=== PATIENT | female | born 1990 | race Caucasian/White ===

== ENCOUNTER 2020-02-08 19:27 | Observation (INO) | payer OTHER, SELFPAY ==
[2020-02-08 19:29] VITALS: BP 142/100; PULSE 100; RESP 16; TEMP 37.2; O2SAT 100; BMI 20.8
--- NOTE | 2020-02-08 19:36 | ED.RN ---
PT REPORTS N/T ON LEFT ARM, NECK, FACE AND SOMETIMES RT HAND. RECENTLY STARTED ON TMJ MOUTHPIECE. HX SPONT PNEUMOTHORAX IN 05/08.
--- NOTE | 2020-02-08 19:50 | EKG12_ITS ---
Test Reason : NUMBNESS Blood Pressure : / mmHG Vent. Rate : 104 BPM Atrial Rate : 104 BPM P-R Int : 156 ms QRS Dur : 088 ms QT Int : 338 ms P-R-T Axes : 065 072 005 degrees QTc Int : 444 ms Sinus tachycardia T wave abnormality, consider inferior ischemia Abnormal ECG Confirmed by KELVIN ESCOBAR, OMAR ([id number]), map editor TIA DEMARCO ([id number]) on 02/12/2020 9:00:32 AM Referred By: Confirmed By:DIMITRIOS WARREN MD
--- NOTE | 2020-02-08 19:51 | CT_ITS ---
STUDY: CTA HEAD AND NECK WITH CONTRAST REASON FOR EXAM: Female, 29 years old. TINGLING IN THE FACE, NECK, DOWN INTO LEFT PINKY. RADIATION DOSAGE (If Supplied By Facility): CTDIvol = ( 23.28 ) mGy, DLP = ( 1326.83 ) mGycm TECHNIQUE: CT angiography was performed with a multi-detector CT scanner. Data acquisition was obtained from the skull base through the vertex following intravenous administration of IV 100 ML ISOVUE 370. MIP images were reconstructed from the axial data set. Post-processing of the angiographic images was performed, with multiplanar reformation and 3D reconstruction. Individualized dose optimization techniques were used for this CT. COMPARISON: No relevant priors. FINDINGS: Normal bilateral petrous carotid arteries. Normal right cavernous carotid artery with a normal supraclinoid bifurcation. Normal left cavernous carotid artery with a normal supraclinoid bifurcation. Normal right A1 segments of the anterior cerebral artery. Normal left A1 segments of the anterior cerebral artery. Normal intact anterior communicating artery (ACOM). Normal bilateral A2 segments of the anterior cerebral arteries. Normal right M1 and M2 segments of the middle cerebral arteries, with a normal M1 bifurcation. Normal left M1 and M2 segments of the middle cerebral arteries, with a normal M1 bifurcation. Normal right posterior communicating artery (PCOM). There is a persistent origin of the left posterior cerebral artery with absence of the posterior communicating artery (PCOM). Normal bilateral vertebral arteries. Normal basilar artery with a normal basilar bifurcation. The visualized bilateral superior cerebellar (SCA) arteries are normal. Normal bilateral P1, P2 and visualized P3 segments of the posterior cerebral arteries. There is no demonstrated aneurysm of the [place]. There is no demonstrated abnormality of the visualized brain. AORTIC ARCH: Normal visualized aortic arch. Normal origins of the brachiocephalic, left common carotid, and left subclavian arteries. RIGHT CAROTID ARTERIES: Normal right common carotid artery (CCA). Normal right common carotid bulb. Normal origin of the right internal carotid (ICA) artery without a hemodynamically significant stenosis. Normal visualized cervical portion of the right internal carotid artery. Normal origin of the right external carotid artery (ECA). LEFT CAROTID ARTERIES: Normal left common carotid artery (CCA). Normal left common carotid bulb. Normal origin of the left internal carotid (ICA) artery without a hemodynamically significant stenosis. Normal visualized cervical portion of the left internal carotid artery. Normal origin of the left external carotid artery (ECA). VERTEBRAL ARTERIES: Normal bilateral vertebral arteries. CT/CTA Head AND Neck W/ Contrast IMPRESSION: Normal CTA Head and neck with contrast. Electronically Signed: Romeo Bah MD at 20:46 EDT Tel , Service support ,
--- NOTE | 2020-02-08 19:59 | ED.RN ---
NO OLD EKGS IN MUSE
--- NOTE | 2020-02-08 19:59 | ED.VISSUMM ---
- ER Visit Summary Date of Service: 02/08/20 Chief Complaint: Facial tingling History of Present Illness: The patient is a 29 F with facial tingling. Patient states this started today and has been intermittent throughout the day. She states that she was recently given a mouthguard by her dentist for TMJ. She is unsure if this is related. She started having bilateral facial tingling and tingling below her jaw today. She denies any difficulty breathing or swallowing. No tongue swelling. No itching. She called her dentist and was advised to discontinue use of the mouthguard while the symptoms are ongoing. She then noticed tingling in her left small finger. She denies weakness. Denies vision or speech changes. Denies headache. Denies fever. She states she feels anxious but the symptoms started before her anxiety. Denies other complaints. Physical Examination: Vitals are stable. Patient is afebrile. Alert no acute distress. HEENT exam is unremarkable. Neck is supple. Lungs are clear and equal bilaterally. Heart is regular rate and rhythm. Abdomen is soft nontender nondistended. Extremities are unremarkable. Skin is warm and dry. Facial and left hand paresthesia. Normal strength Remainder of exam is unremarkable. Emergency Department Course and Treatment: Patient was given Ativan. EKG is sinus tachycardia rate of 104 with T wave flattening laterally. CBC, chemistry unremarkable other than potassium 3.4. Troponin is negative. HCG negative. TSH is normal. Chest x-ray shows no acute process. CTA head and neck show normal CTA Head and neck with contrast. She continues to have facial paresthesias as well as left hand paresthesias. Will discuss with hospitalist for observation for MRI. Disposition: Observation Impression: Facial and left hand paresthesias This note was generated with Graph[employer] dictation software. It may contain incorrect words, spelling, and punctuation that were not noted in review of the chart prior to signing ED Disposition - Plan for ED Patient: Referrals: Hannah Chinchilla NP-C [Primary Care Provider] -
[2020-02-08] MEDS: LORazepam 0.5 MG Tablet PO (20:04)
[2020-02-08] MEDS: 0.9% Normal Saline 1,000 ML 1000 ML IV (20:04)
[2020-02-08 20:24] LABS: Absolute Lymphocyte Count 2.26 X10^3/uL (0.83-4.51); Absolute Neutrophil Count 4.3 X10^3/uL (2.0-7.7); Basophil# 0.06 X10^3/uL; Basophil% 0.8 % (0-1); Eosinophil# 0.35 X10^3/uL; Eosinophils% 4.8 % (0-5); Hematocrit 41.1 % (37-47); Hemoglobin 13.6 g/dL (12.0-15.0); Lymphocyte # 2.26 X10^3/ul (4.0); Lymphocyte % 30.7 % (19-41); Mean Corp Hgb Conc 33.1 g/dL (32-36); Mean Corpuscular Hgb 29.6 pg (27.0-32.0); Mean Corpuscular Volume 89.3 fL (81-99); Mean Platelet Vol. 9.1 fl (6.2-12.0); Monocyte# 0.41 X10^3/uL; Monocyte% 5.6 % (0-10); NRBC Flagged by Analyzer 0 % (0-5); Neutrophil # 4.25 X10^3/uL (2.7-7.7); Neutrophil % 57.7 % (47-70); Platelet Count 242 K/mm3 (150-450); RBC Distribution Width CV 12.1 % (11.6-14.6); RBC Distribution Width SD 39.1 fl (35.1-43.9); White Blood Count 7.4 K/mm3 (4.4-11.0)
--- NOTE | 2020-02-08 20:25 | RAD_ITS ---
STUDY: X-RAY CHEST REASON FOR EXAM: Female, 29 years old. NUMBNESS AND TINGLING IN ARM AND FACE TECHNIQUE: Single frontal view of the chest. COMPARISON: None. FINDINGS: The lungs are clear and expanded. There is no demonstrated pleural abnormality. Normal size heart. Normal mediastinum and cami. Normal visualized pulmonary arteries. Normal visualized aortic arch and descending thoracic aorta. Normal visualized thoracic spine. Normal visualized ribs, clavicles, and shoulders. There is no demonstrated abnormality of the visualized soft tissue structures of the upper abdomen. RAD/Chest 1 View (Portable) IMPRESSION: Normal x-ray examination of the chest. Electronically Signed: Romeo Bah MD at 20:56 EDT Tel , Service support ,
[2020-02-08 20:30] LABS: Internal QC Validated? YES +Cl - CLEAR BKGD; Pregnancy, Serum, hCG Quali. NEGATIVE Negative
[2020-02-08 20:49] LABS: Anion Gap 5 (5-15); BUN 12 mg/dL (7-18); BUN/Creat Ratio 13.7 RATIO (10-20); Calcium,Total 9.2 mg/dL (8.5-10.1); Chloride 110 mmol/L (98-107); Creatinine, Serum 0.88 mg/dL (0.55-1.02); EST Glomerular Filtration Rate 81 mL/min (>60); Est Glom Filt Rate - Afr Amer 98 mL/min (>60); Estimated Creatinine Clearance 98.13 ml/min; Glucose 111 mg/dL (74-106); Potassium 3.4 mmol/L (3.5-5.1); Sodium Level 142 mmol/L (136-145); Thyroid Stim Hormone (TSH) 2.67 uIU/mL (0.358-3.74)
[2020-02-08 21:14] VITALS: BP 121/8; PULSE 87; RESP 15; O2SAT 98
--- NOTE | 2020-02-08 22:16 | PCM.HP.STD ---
Problem List (1) Paresthesia Status: Acute History of Present Illness Date of Admission: 02/08/20 Chief Complaint: Paresthesia The patient is a 29 year old F with a significant history of spontaneous pneumothorax; and antitrypsin deficiency who presents to the emergency department with paresthesias. She reports numbness and tingling starting from her neck and radiating to her face. Her symptoms started after she tried a mouthpiece for her TMJ. Her symtpoms has been going on for about 7 days. Also she noticed some tingling sensation of the left small finger. She reports anxiety but she feels that her paresthesias started before her anxiety. However she feels that her anxiety has worsened hyperesthesia. The patient is a 29 year old F with a significant history of spontaneous pneumothorax; and antitrypsin deficiency who presents emergency department with paresthesias. Paresthesia Head and neck CT at emergency department was unremarkable We will get brain CT NIH initially started but is unlikely stroke. Discontinue NIHSS. Check hemoglobin A1c DVT prophylaxis: encouraged to ambulate. Past Medical History Medical History: Medical History (Last Updated 02/09/20 @ 02:[address] Adam Mckeon MD) TMJ (temporomandibular joint syndrome) M26.609 Allergies No Known Allergies Allergy (Verified 02/08/20 19:29) Surgical History: no surgical history Smoking Status: Never smoker - *Family History Maternal History Items: Dementia, Hypertension Paternal History Items: Diabetes, Heart Disease Review of Systems Constitutional: Denies: Chills, Fever, Weight Change HEENT: Denies: Head Aches, Sinus Congestion, Sinus Drainage Cardiovascular: Denies: Chest Pain, Palpitations Respiratory: Denies: Cough, Shortness of breath at rest, Sputum production Gastrointestinal: Denies: Abdominal Pain, Nausea, Vomiting Genitourinary: Denies: Dysuria Musculoskeletal: Denies: Joint Pain, Joint Tenderness Skin: Denies: Rash, Wounds Neurological: Reports: Numbness, Tingling. Denies: Focal weakness Psychiatric: Denies: Anxiety, Depression, Homicidal Ideations, Suicidal Ideations Hematologic/ Lymphatic: Denies: Easy Bruising, Easy Bleeding VTE Information - Inpt Only VTE Present on Admission: No VTE Mechan Device Prophylaxis: None VTE Pharm Prophylaxis ordered?: No Patient Problems: Active and Suspected Problems (Last Updated 02/09/20 @ 02:[address] Adam Mckeon MD) Paresthesia (Acute) - Physical Exam Vitals/I&O's: Vital Signs Temp Pulse Resp BP Pulse Ox 98.9 F 87 15 121/8 H 98 02/08/20 19:29 02/08/20 21:14 02/08/20 21:14 02/08/20 21:14 02/08/20 21:14 Oxygen Delivery Method Room Air Weight: 65.9 kg Body Mass Index (BMI) 20.8 General: Alert, Oriented x3, Cooperative HEENT: Atraumatic, PERRLA, EOMI, Normocephalic Neck: Supple, No JVD, Negative Carotid Bruits Lungs: Clear to auscultation, Normal air movement Cardiovascular: Regular rate, No murmurs Abdomen: Bowel Sounds Present, Soft, Non Tender Extremities: No edema, Capillary Refill Less than 3 Seconds Skin: No rashes, No breakdown Musculoskeletal: No Tenderness to Palpation of Joints or Extremities Neurological: Cranial nerves II-XII grossly intact Psych/Mental Status: Normal Affect, Appropriate Laboratory Results 02/08/20 20:15: WBC 7.4, RBC 4.60, Hgb 13.6, Hct 41.1, MCV 89.3, MCH 29.6, MCHC 33.1, RDW Std Deviation 39.1, RDW Coeff of Karen 12.1, Plt Count 242, MPV 9.1, Immature Gran % (Auto) 0.400, Neut % (Auto) 57.7, Lymph % (Auto) 30.7, [place] % (Auto) 5.6, Eos % (Auto) 4.8, Baso % (Auto) 0.8, Absolute Neuts (auto) 4.3, Absolute Lymphs (auto) 2.26, Nucleated RBC % 0 02/08/20 20:15: Sodium 142, Potassium 3.4 L, Chloride 110 H, Carbon Dioxide 27.0, Anion Gap 5, BUN 12, Creatinine 0.88, Estim Creat Clear Calc 98.13, Est GFR (MDRD) Af Amer 98, Est GFR (MDRD) Non-Af 81, BUN/Creatinine Ratio 13.7, Glucose 111 H, Calcium 9.2, Troponin I < 0.015, TSH 2.67 02/08/20 20:15: Serum , Qual NEGATIVE Assessment/Plan All Active Problems (Last Updated 02/09/20 @ 02:[address] Adam Mckeon MD) Paresthesia (Acute) The patient is a 29 year old F with a significant history of spontaneous pneumothorax; and antitrypsin deficiency who presents emergency department with paresthesias. Paresthesia Head and neck CT at emergency department was unremarkable We will get brain CT NIH initially started but is unlikely stroke. Discontinue NIHSS. Check hemoglobin A1c Anxiety disorder Reassured. DVT prophylaxis: encouraged to ambulate. OBSV E&M: 54167 Initial observation care L2
[2020-02-08 22:26] VITALS: BP 114/73; PULSE 86; RESP 17; O2SAT 98
[2020-02-08 23:33] VITALS: BMI 20.8
[2020-02-08 23:38] VITALS: BMI 20.8
[2020-02-08 23:40] VITALS: BP 123/81; PULSE 72; RESP 16; TEMP 36.8; O2SAT 100
[2020-02-08 23:57] VITALS: PULSE 85
[2020-02-09 02:47] VITALS: BP 110/69; PULSE 75; RESP 16; TEMP 36.4; O2SAT 98
[2020-02-09 03:00] VITALS: PULSE 74
[2020-02-09 05:58] VITALS: BP 107/58; PULSE 73; RESP 16; TEMP 36.7; O2SAT 94
[2020-02-09 06:48] VITALS: PULSE 68
[2020-02-09 07:28] LABS: Cholesterol 162 mg/dL (200); High Density Lipoprotein 62 mg/dL; Triglycerides 51 mg/dL; Very Low Density Lipoprotein 10 mg/dL (5-40)
--- NOTE | 2020-02-09 09:00 | MRI_ITS ---
STUDY: MRI BRAIN WITHOUT CONTRAST REASON FOR EXAM: Female, 29 years old. numbness/ tingling facial and left little finger TECHNIQUE: Standardized multiplanar fat and water weighted pulse sequences were obtained. COMPARISON: None. FINDINGS: Normal size of the ventricles and extra-axial spaces for the patient''s age. Normal white matter tracts of the supratentorial brain. There is no evidence for recent intracranial ischemia or other cause of cytotoxic edema on diffusion weighted imaging (DWI). Normal T2* images of the brain without demonstrated susceptibility artifact. There is no demonstrated hemosiderin stain. Normal bilateral basal ganglia. Normal thalami. There is no extra-axial fluid accumulation. Normal flow voids within the major intracranial circulation suggesting patency by spin echo criteria. Normal sella turcica, pituitary gland, infundibular stalk, optic chiasm and hypothalamus. Normal tectal plate and pineal gland. Normal midbrain, bety and medulla. Normal cerebellum. Normal basal cisterns. Normal bilateral temporal bones. Normal bilateral internal auditory canals. No demonstrated orbital abnormality, within the constraints of a routine brain study. Normal visualized paranasal sinuses. Normal calvarium and skull base. Normal visualized soft tissue structures. Normal visualized upper cervical spine. MRI/Brain without Contrast IMPRESSION: Normal unenhanced MRI of the brain. Electronically Signed: Ludwig Latham MD at 12:37 EDT Tel , Service support ,
--- NOTE | 2020-02-09 11:19 | DCINST_ITS ---
- Discharge Diagnoses Current Active Problems: Current Active and Chronic Problems (Last Updated 02/09/20 @ 02:[address] Adam Mckeon MD) Paresthesia (Acute) You will use the following diet at home:: No restrictions Your food should be the consistency of: Regular Your liquids should be the consistency of: Regular/Thin Discharge Activity: Return to Normal Activity Allergies/Adverse Reactions: Allergies No Known Allergies Allergy (Verified 02/08/20 19:29) Primary Care Physician: Hannah Chinchilla NP-C [Primary Care Provider] - Please follow up with your Primary Care Physician in: 1 week Test Results: Test results from this visit will be discussed in further detail at your follow- up appointment, if applicable. Proposed Discharge Date: 02/09/20
[2020-02-09 11:21] VITALS: BP 112/77; PULSE 75; RESP 16; TEMP 37.3; O2SAT 98
--- NOTE | 2020-02-09 13:48 | PCM.DC.SUM ---
<Tyrese Cary - Last Filed: 02/09/20 13:48> Discharge Date and Diagnosis Date of Admission: 02/08/20 Date of Discharge: 02/09/20 - Primary Discharge Diagnosis Acute Problems: Active Problems (Last Updated 02/09/20 @ 02:[address] Adam Mckeon MD) Paresthesia (Acute), ulnar radiculopathy, unclear etiology Hospital Course and Treatment Imaging Results: IMAGIN02/09/20 09:00 Brain without Contrast [MRI] Routine MRI/Brain without Contrast IMPRESSION: Normal unenhanced MRI of the brain. CT/CTA Head AND Neck W/ Contrast IMPRESSION: Normal CTA Head and neck with contrast. Operations: None Procedures: None Summary of Care Provided: Hospital Course: The patient is a 29 year old F with pmhx of antitrypsin disorder and TMJ who presented to the ER with c/o left hand 4th and 5th digit parasthesias, and occasionally parasthesias in her face and neck. This had been occurring off and on for about 7 days. She had recently started using a new mouthpiece for TMJ possibly associated with her face and neck symptoms. In the ER she had negative CTA of the head and neck, normal CBC, BMP with mild hypokalemia, negative troponin. TSH was normal, test negative. She was admitted to the PCU. She had an MRI of the brain that was negative. Her parasthesias were most notable in the left 4th and 5th digits. On physical exam she had normal strength, sensation, and ROM in her digits and hand. Radial/ulnar pulse were normal. She was felt to have an ulnar nerve radiculopathy. She denied recent trauma to the arm. She was discharged home in stable condition and will need further workup per her pcp. She should follow u daveith her pcp in 1 week. This patient was seen by Tyrese Cary PA-C under the supervision of Dr. Marley [] - Physical Exam Vitals/I&O's: Vital Signs Temp Pulse Resp BP Pulse Ox 99.1 F 75 16 112/77 98 02/09/20 11:21 02/09/20 11:21 02/09/20 11:21 02/09/20 11:21 02/09/20 11:21 Oxygen Delivery Method Room Air Weight: 145 lb 3.2 oz Body Mass Index (BMI) 20.8 Intake and Output for Last 24 Hours 02/07/20 02/08/20 02/09/20 23:59 23:59 23:59 Intake Total 1000 / 1000 750 / 750 Output Total 0 / 0 Balance 1000 / 1000 750 / 750 General: Alert, Oriented x3, Cooperative HEENT: Atraumatic, PERRLA, EOMI, Normocephalic Neck: Supple, No JVD, Negative Carotid Bruits Lungs: Clear to auscultation, Normal air movement Cardiovascular: Regular rate, No murmurs Abdomen: Bowel Sounds Present, Soft, Non Tender Extremities: No edema, Capillary Refill Less than 3 Seconds Skin: No rashes, No breakdown Musculoskeletal: No Tenderness to Palpation of Joints or Extremities Neurological: Cranial nerves II-XII grossly intact Psych/Mental Status: Normal Affect, Appropriate, Alert and oriented to time, place, person, mood and affect Laboratory Results 02/08/20 20:15: WBC 7.4, RBC 4.60, Hgb 13.6, Hct 41.1, MCV 89.3, MCH 29.6, MCHC 33.1, RDW Std Deviation 39.1, RDW Coeff of Karen 12.1, Plt Count 242, MPV 9.1, Immature Gran % (Auto) 0.400, Neut % (Auto) 57.7, Lymph % (Auto) 30.7, Esmeralda % (Auto) 5.6, Eos % (Auto) 4.8, Baso % (Auto) 0.8, Absolute Neuts (auto) 4.3, Absolute Lymphs (auto) 2.26, Nucleated RBC % 0 02/08/20 20:15: Sodium 142, Potassium 3.4 L, Chloride 110 H, Carbon Dioxide 27.0, Anion Gap 5, BUN 12, Creatinine 0.88, Estim Creat Clear Calc 98.13, Est GFR (MDRD) Af Amer 98, Est GFR (MDRD) Non-Af 81, BUN/Creatinine Ratio 13.7, Glucose 111 H, Calcium 9.2, Troponin I < 0.015, TSH 2.67 02/08/20 20:15: Serum , Qual NEGATIVE 02/08/20 20:15: Hemoglobin A1c 5.0 02/08/20 20:18: Hemoglobin A1c Pending 02/09/20 00:14: Troponin I < 0.015 02/09/20 05:30: Triglycerides 51, Cholesterol 162, LDL Cholesterol 90, VLDL Cholesterol 10, HDL Cholesterol 62 Current Medications Acetaminophen (Tylenol) 650 mg PO Q6H PRN PRN PRN Reason: Pain Score 1-10/Temp > 100.7 F Hydralazine HCl (Apresoline Iv) 5 mg IV Q30M PRN PRN Reason: to maintain BP goals Sodium Chloride () 250 mls @ 15 mls/hr IV .[id number] PRN PRN Reason: Saline Flush Sodium Chloride () 250 mls @ 15 mls/hr IV .[id number] PRN PRN Reason: Additional IVPB Infusion Labetalol HCl (Trandate) 10 - 20 mg IV Q10M PRN PRN PRN Reason: to Maintain BP Goals Ondansetron HCl (Zofran) 4 mg IV Q8H PRN PRN PRN Reason: NAUSEA/VOMITING Sodium Chloride () 10 - 40 ml IV UD PRN PRN Reason: SALINE FLUSH Discharge Activity: Return to Normal Activity Primary Care Physician: aHnnah Chinchilla NP-C [Primary Care Provider] - Please follow up with your Primary Care Physician in: 1 week Disposition: Home Minutes spent on discharge:: 35 Patient Condition:: Stable Medical Necessity - Tobacco Use Smoking Status: Never smoker Meaningful Use Info Meaningful Use Diagnoses (Choose all that apply): None applicable <Tommy Marley - Last Filed: 02/09/20 14:14> Hospital Course and Treatment Imaging Results: 02/09/20 09:00 Brain without Contrast [MRI] Routine Operations: None Procedures: None Summary of Care Provided: Patient seen and examined independently. Data reviewed. I agree with the above note by the physician engineering assistant. The patient is a 29 year old F presents with facial paresthesias as well as paresthesias in her fourth and fifth left fingers. Patient underwent neurologic work-up including a CT of the head neck and MRI of the brain. All which were negative. In regards to the patient's paresthesias in her fourth and fifth fingers on left hand, I feel that is related with an ulnar neuropathy. I advised the patient about trying to keep her arm straight while she sleeping such as talking in between her legs or possible even wrapping a towel around to help prevent flexion. She states it actually does not bother her at night, however. She does state that she carries her 1-year-old primarily in her left arm which could be a factor. For the patient's facial paresthesias she has recently started using a TMJ orthotic. Is unclear if that is directly correlated or not but her paresthesias are more diffuse and not localized. No concern for stroke but may be just related with some changes that her face is undergoing with the new dental device. Reassurance provided to the patient and patient was discharged home in stable condition. [] - Physical Exam Vitals/I&O's: Vital Signs Temp Pulse Resp BP Pulse Ox 37.3 C 75 16 112/77 98 02/09/20 11:21 02/09/20 11:21 02/09/20 11:21 02/09/20 11:21 02/09/20 11:21 Oxygen Delivery Method Room Air Weight: 65.862 kg Body Mass Index (BMI) 20.8 Intake and Output for Last 24 Hours 02/07/20 02/08/20 02/09/20 23:59 23:59 23:59 Intake Total 1000 / 1000 750 / 750 Output Total 0 / 0 Balance 1000 / 1000 750 / 750 General: Alert, Cooperative HEENT: Atraumatic, Normocephalic Psych/Mental Status: Normal Affect, Appropriate Laboratory Results 02/08/20 20:15: WBC 7.4, RBC 4.60, Hgb 13.6, Hct 41.1, MCV 89.3, MCH 29.6, MCHC 33.1, RDW Std Deviation 39.1, RDW Coeff of Karen 12.1, Plt Count 242, MPV 9.1, Immature Gran % (Auto) 0.400, Neut % (Auto) 57.7, Lymph % (Auto) 30.7, Esmeralda % (Auto) 5.6, Eos % (Auto) 4.8, Baso % (Auto) 0.8, Absolute Neuts (auto) 4.3, Absolute Lymphs (auto) 2.26, Nucleated RBC % 0 02/08/20 20:15: Sodium 142, Potassium 3.4 L, Chloride 110 H, Carbon Dioxide 27.0, Anion Gap 5, BUN 12, Creatinine 0.88, Estim Creat Clear Calc 98.13, Est GFR (MDRD) Af Amer 98, Est GFR (MDRD) Non-Af 81, BUN/Creatinine Ratio 13.7, Glucose 111 H, Calcium 9.2, Troponin I < 0.015, TSH 2.67 02/08/20 20:15: Serum , Qual NEGATIVE 02/08/20 20:15: Hemoglobin A1c 5.0 02/08/20 20:18: Hemoglobin A1c Cancelled 02/09/20 00:14: Troponin I < 0.015 02/09/20 05:30: Triglycerides 51, Cholesterol 162, LDL Cholesterol 90, VLDL Cholesterol 10, HDL Cholesterol 62 Discharge Activity: Return to Normal Activity Disposition: Home Minutes spent on discharge:: 35 Patient Condition:: Stable Medical Necessity - Tobacco Use Smoking Status: Never smoker Meaningful Use Info Meaningful Use Diagnoses (Choose all that apply): None applicable OBSV E&M: 56191 Observation care discharge
== END 2020-02-09 11:19 | disposition home or self-care (01) ==
LOC: ED 20:05 → PCU 02-09 03:51
PROVIDERS: Admitting Provider Hospitalist; Emergency Provider Emergency Medicine; PCP Nurse Practitioner Primary Care
DX: M54.10 Radiculopathy, site unspecified (principal); E87.6 Hypokalemia; R20.2 Paresthesia of skin; R20.0 Anesthesia of skin
CPT/HCPCS: 36415; 70496; 70498; 70551; 71045; 80048; 80061; 83036; 84443; 84484; 84703; 85025; 93005; 96360; 96361; 99218; 99283; J7030; Q9967; A4216; G0378

== ENCOUNTER 2022-09-23 06:55 | Inpatient (IN) | payer OTHER, SELFPAY ==
[2022-09-23] VITALS (35 sets, daily range): BP systolic 108–153; BP diastolic 62–97; PULSE 67–103; RESP 16; TEMP 36.4–37.1; O2SAT 92–100; BMI 29.2
[2022-09-23] MEDS: Lactated Ringers 1,000 ML 50 ML IV (07:53)
[2022-09-23] MEDS: Oxytocin 15 Units/NS 250ml 15 UNITS/250 ML IV.SOLN 2 UNITS IV (07:55)
--- NOTE | 2022-09-23 07:59 | PCM.HP.OB ---
HPI - General General Date of Admission: 09/23/22 HPI Narrative ROGER VILLALOBOS, is a 32 F who presents at 39w5d for induction of labor. . uneventful Maternal Data Information Final SHEBA: 09/25/22 Gestational age: 39w5d [facility] Medical History (Updated 09/23/22 @ 11:35 by Hannah Bang CNM) Autoimmune disease TMJ (temporomandibular joint syndrome) Vaginal after Home Medications acyclovir 400 mg tablet mg prophylactic 09/23/22 [History Last Taken 09/23/22] cxkkzxeo-ncm-Ce-FA 1 mg tablet 1 tab PO DAILY 09/23/22 [History Last Taken Unknown] Allergy/AdvReac Type Severity Reaction Status Date / Time No Known Allergies Allergy Verified 02/08/20 19:29 Surgical History (Updated 09/23/22 @ 11:35 by Hannah Bang CNM) History of gynecologic surgery History of surgery Previous section Social History Smoking Status: Never smoker History Elective abortions Hx Para 2 Spontaneous abortions Hx # Term Pregnancies Ectopic pregnancies Hx # Pregnancies Multiple births # of living children NST FHR Rate Baby A Baseline: 135 Variability:: Moderate Accelerations:: 15 x 15 Decelerations:: None FHR Category:: Category I Uterine Activity:: Irregular ROS Constitutional Constitutional: Reports systems reviewed and no addt'l complaints, except as documented; Denies headache(s) Eyes Eyes: Denies acute decrease in peripheral vision, blurry vision or change in vision ENT HEENT: Reports systems reviewed and no addt'l complaints, except as documented Cardiovascular Cardiovascular: Denies chest pain or dizziness Respiratory/Chest Respiratory/Chest: Denies cough, dyspnea, dyspnea on exertion, shortness of breath at rest or shortness of breath with exertion Gastrointestinal Gastrointestinal: Denies abdominal pain, diarrhea, nausea or vomiting Genitourinary Genitourinary: Denies abdominal discomfort Musculoskeletal Musculoskeletal: Denies limited range of motion Integumentary Integumentary: Reports systems reviewed and no addt'l complaints, except as documented Neurologic Neurologic: Reports systems reviewed and no addt'l complaints, except as documented Psychiatric Psychiatric: Reports systems reviewed and no addt'l complaints, except as documented Endocrine Endocrinology: Reports systems reviewed and no addt'l complaints, except as documented Hematologic/Lymphatic Hematologic/Lymphatic: Reports systems reviewed and no addt'l complaints, except as documented Allergic/Immunologic Allergic/Immunologic: Reports systems reviewed and no addt'l complaints, except as documented Vital Signs Vital Signs Vital Signs: 09/23/22 07:30 09/23/22 07:30 09/23/22 07:31 Temperature Temperature Source Pulse Rate 100 Blood Pressure 129/87 H BP Systolic 129 BP Diastolic 87 Pulse Ox 99 09/23/22 07:31 09/23/22 07:28 09/23/22 07:28 Temperature 97.5 F L Temperature Source Temporal Pulse Rate 88 Blood Pressure BP Systolic BP Diastolic Pulse Ox Weight Weight: 198 lb 6.4 oz Body Mass Index (BMI) 29.2 Physical Exam Const alert and oriented x3 General Appearance: cooperative Orientation / Consciousness: awake, oriented to person, oriented to place and oriented to time Exam Limitations: no limitations HEENT normocephalic Head and Scalp: normal to inspection, normocephalic and atraumatic Face and Sinus: normal facial exam Eyes General Eye: normal appearance of both eyes Neck full ROM Chest Chest: symmetrical chest wall rise Resp normal respiratory effort and normal air movement Auscultation: clear to auscultation bilaterally Cardio regular rate, regular rhythm, S1 normal heart sound, S2 normal heart sound, no murmurs, no rub, no gallops and no clicks GI normal to inspection, nondistended, normoactive bowel sounds and non-tender appearance of the vagina normal Bladder / Kidney Exam: no CVA tenderness Manual OB Exam: estimated gestational size appropriate, presentation cephalic and dilated 3cm and AROM by Amniotic Fluid: clear amniotic fluid Back/Spine normal ROM Extremity normal to inspection and full ROM Skin no rashes or lesions noted Neuro oriented x3, CN's II-XII intact bilaterally and moves all extremities Sensorium / Orientation: awake, alert and oriented to person Motor Exam: clonus absent Deep Tendon Reflexes: Rt Patellar (L4): 2+ and Lt Patellar (L4): 2+ Labs Labs Labs: Blood Type B POSITIVE Antibody Screen NEGATIVE Hct 35.5 % (37-47) L Hgb 11.8 g/dL (12.0-15.0) L Syphilis Total Ab Non-reactive GC/CT negative RPR negative HBsAG negative HIV negative B positive Rubella immune GBS negative Assessment & Plan (1) History of : (2) Encounter for induction of labor: (3) Hx of herpes genitalis: (4) History of pneumothorax: (5) Previous section: COMMENT: first in 2017 for breech PLAN: Plan Admit to labor and delivery Routine labs epidural for pain management continuous EFM AROM and pitocin GBS negative collaborative physician.
[2022-09-23 08:01] LABS: Absolute Lymphocyte Count 1.91 X10^3/uL (0.83-4.51); Absolute Neutrophil Count 7.8 X10^3/uL (2.0-7.7); Basophil# 0.03 X10^3/uL; Basophil% 0.3 % (0-1); Eosinophil# 0.08 X10^3/uL; Eosinophils% 0.7 % (0-5); Hematocrit 35.5 % (37-47); Hemoglobin 11.8 g/dL (12.0-15.0); Lymphocyte # 1.91 X10^3/ul (0.83-4.51); Lymphocyte % 17.9 % (19-41); Mean Corp Hgb Conc 33.2 g/dL (32-36); Mean Corpuscular Hgb 30.5 pg (27.0-32.0); Mean Corpuscular Volume 91.7 fL (81-99); Mean Platelet Vol. 10.2 fl (6.2-12.0); Monocyte# 0.76 X10^3/uL; Monocyte% 7.1 % (0-10); NRBC Flagged by Analyzer 0 % (0-5); Neutrophil # 7.81 X10^3/uL (2.7-7.7); Neutrophil % 73.3 % (47-70); Platelet Count 179 K/mm3 (150-450); Red Blood Count 3.87 M/mm3 (4.2-5.4); White Blood Count 10.7 K/mm3 (4.4-11.0)
[2022-09-23] MEDS: LACTATED RINGERS 500 ML 999 ML IV (09:15)
[2022-09-23 09:19] LABS: Syphilis Antibodies Non-reactive
[2022-09-23 09:39] LABS: Hepatitis C Antibody Non-Reactive (Nonreactive)
[2022-09-23] MEDS: fentaNYL-bupivacaine (epidural) 100 ML BAG EPIDURAL (10:24)
--- NOTE | 2022-09-23 13:15 | EX.PCM.OBRPT ---
Vaginal Delivery Maternal Presentation Maternal Presentation: Elective Induction Type of Induction: Pitocin and Amniotomy Operative Information Date of Procedure: 09/23/22 Pre-Operative Diagnosis: 39.5 weeks, previous C/S, previous , h/o HSV Post-Operative Diagnosis: same, live female infant Surgery / Procedure Performed: Type of Anesthesia: Epidural Estimated Blood Loss: 200 Time of Delivery: 12:49 Findings Description of Procedure: Patient progressed to fully dilated. Good maternal pushing efforts delivered the 's head followed by the anterior and posterior shoulders followed by the rest the infant's body. Infant was then placed on the mother's chest for immediate skin to skin. was vigorous. Delayed cord clamping performed. IV Pitocin given. Placenta delivered spontaneously and intact. Small second-degree vaginal laceration appreciated. This was repaired using 3-0 Rapide. Presentation: Vertex Amniotic Membrane Rupture Type: Artificial Amniotic Fluid Description: Clear Placental Delivery Description: Spontaneous Placenta Disposition: [facility] Specimen(s) Removed: placenta Cord Vessel Description: 3 Vessels Cord Entanglement: None A Gender: Female (1 minute): 8 (5 minute): 9 Delayed Cord Clamping: Yes Post Vaginal Delivery Medications Given After Delivery: IV Pitocin Episiotomy Description: None Laceration: Vaginal Extension/lac and 2nd degree Complication Complications: None
[2022-09-23] MEDS: Oxytocin 15 Units/NS 250ml 15 UNITS/250 ML IV.SOLN 83 UNITS IV (13:40)
[2022-09-23] MEDS: Ibuprofen 600 MG Tablet PO ×2 (15:00→21:47)
[2022-09-24 04:00] VITALS: BP 136/84; PULSE 73; RESP 16; TEMP 36.4
--- NOTE | 2022-09-24 08:37 | DS.PCM_ITS ---
Providers Date of Admission: 09/23/22 Primary Care Physician: Hannah Chinchilla, PRINTING SPECIALIST-C Reason For Visit: VAGINAL DELIVERY Diagnosis Discharge Diagnosis (1) History of : Status: Acute Code(s): Z98.891 - History of uterine scar from previous surgery (2) Encounter for induction of labor: Status: Acute Code(s): Z34.90 - Encounter for supervision of normal , unspecified, unspecified trimester (3) Hx of herpes genitalis: Status: Acute Code(s): Z86.19 - Personal history of other infectious and parasitic diseases (4) History of pneumothorax: Status: Acute Code(s): Z87.09 - Personal history of other diseases of the respiratory system (5) Previous section: Status: Acute Code(s): Z98.891 - History of uterine scar from previous surgery Medications at Discharge Home Medications xakrulay-dgq-Vv-FA 1 mg tablet 1 tab PO DAILY 09/23/22 Hospital Course Operations None Procedures None Summary of Care Provided Hospital Course: 2-year-old multigravida female presented for induction of labor with favorable cervix. History of 1 section and 1 successful vaginal delivery. On 09/23/2022 she was admitted for induction of labor. She had spontaneous vaginal delivery of a single live . By day #1 she is ambulating, urinating tolerating regular diet without difficulty and ready for discharge. She denied any headache, visual changes. Physical Exam Const alert and no apparent distress Narrative: Fundus firm, below umbilicus. Weight / BMI Weight Weight: 89.993 kg Body Mass Index (BMI) 29.2 ABG / Lab / Microbiology Data Result Diagrams: 09/23/22 07:45 Laboratory: Laboratory Results - last 24 hr 09/23/22 07:45: Blood Type B POSITIVE, Antibody Screen NEGATIVE 09/23/22 07:45: Syphilis Total Ab Non-reactive 09/23/22 07:45: Hepatitis C Antibody Non-Reactive Meaningful Use Info Meaningful Use Diagnoses (Choose all that apply): None applicable Discharge Plan Admission Admit Date/Time: 09/23/22 06:55 Primary Reason for Your Visit: Vaginal delivery Attending Provider: Renee Leach Primary Care Provider: Hannah Chinchilla NP Discharge Orders/Prescriptions Prescriptions: Continued ebwbrrsz-ejj-We-FA 1 mg Tablet 1 tab PO DAILY Discontinued acyclovir 400 mg tablet Label Comments: take 1 tablet by mouth twice a day Referrals / Follow Up: Hannah Chinchilla PRINTING SPECIALIST, PRINTING SPECIALIST-C [Primary Care Provider] - Disposition Disposition (needs filled in before D/C Order can be placed): Home, Self Care
[2022-09-24 08:59] VITALS: BP 124/77; PULSE 78; RESP 16; TEMP 36.4
[2022-09-24] MEDS: Acetaminophen 500 MG Tablet 1000 MG PO (09:27)
[2022-09-24 13:25] VITALS: BP 125/79; PULSE 96; RESP 18; TEMP 36.8
== END 2022-09-24 15:05 | disposition home or self-care (01) | DRG 807 ==
PROVIDERS: Obstetrics & Gynecology; Admitting Provider Obstetrics & Gynecology; PCP Nurse Practitioner Primary Care; Visit Provider Obstetrics & Gynecology
DX: O70.1 Second degree perineal laceration during delivery (principal); Z37.0 Single live birth; O34.219 Maternal care for unspecified type scar from previous cesarean delivery; Z3A.39 39 weeks gestation of pregnancy; Z86.19 Personal history of other infectious and parasitic diseases; Z87.09 Personal history of other diseases of the respiratory system
CPT/HCPCS: 59025; 59050; 85025; 86780; 86803; 86850; 86900; 86901; 99221; J7120; G0378

== ENCOUNTER 2023-11-16 05:57 | Inpatient (IN) | payer OTHER, SELFPAY ==
--- NOTE | 2023-11-15 13:17 | PCM.HP.BLA ---
History and Physical Date of Admission: 11/16/23 Pre-Op History and Physical HPI: The patient is a 33 year old female presenting for pre-operative visit. She is scheduled for , for breech, repeat cs on 11/16/23. Procedure discussed along with risks, benefits and complications. Other alternatives discussed for management. Consent form signed? Yes. PAST MEDICAL HISTORY PAST MEDICAL HISTORY Diagnosis Date ? Abnormal glandular Papanicolaou smear of cervix 2013 HPV ? 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 Factor V Leiden mutation (HCC) Family history of Factor V ? Oral contraceptive prescribed ? Pneumothorax right lung-spontaneous ? Raynaud's syndrome ? TMJ (dislocation of temporomandibular joint) PAST SURGICAL HISTORY PAST SURGICAL HISTORY Procedure Laterality Date ? DELIVERY ONLY ? INSTLJ VIA CHEST TUBE/CATH AGENT FOR PLEURODESIS 2019 VATS, wedge resection ? TMJ ? VAGINOSCOPY CURRENT MEDICATIONS Current Outpatient Medications Medication Sig Dispense Refill ? acyclovir (ZOVIRAX) 400 mg tablet Take 1 tablet by mouth two times a day. 60 tablet 1 ? calcium carbonate (TUMS ORAL) Take 1 tablet by mouth four times a day as needed. DOSAGE UNKNOWN ? acetaminophen (TYLENOL) 500 mg tablet Take 1,000 mg by mouth every 8 hours as needed for pain. ? famotidine (PEPCID ORAL) Take 20 mg by mouth two times a day as needed. ? multivitamin (CLASSIC ) 28 mg iron- 800 mcg tab(s) Take 1 tablet by mouth once daily. ? L.acid/L.casei/B.bif/B.anita/FOS (PROBIOTIC BLEND ORAL) Take 1 capsule by mouth once daily. No current facility-administered medications for this visit. ALLERGIES: Patient has no known allergies. PERSONAL HISTORY: SOCIAL HISTORY Social History Tobacco Use ? Smoking status: Never ? Smokeless tobacco: Never Vaping Use ? Vaping Use: Never used Substance Use Topics ? Alcohol use: Not Currently Comment: Current alcohol user-socially ? Drug use: No Comment: No reported history FAMILY HISTORY: FAMILY HISTORY FAMILY HISTORY Problem Relation Age of Onset ? Skin Cancer Mother ? other (diverticulosis) Father ? other (atelectasis) Brother ? Alpha 1 Antitrypsin Brother ? No Known Problems Brother ? No Known Problems Brother ? Stroke Maternal Grandmother ? Dementia Maternal Grandmother ? Stroke Maternal Grandfather ? Heart Maternal Grandfather ? Hypertension Maternal Grandfather ? Kidney Disease Paternal Grandmother ? Rheumatologic disease Paternal Grandmother ? Heart Paternal Grandmother ? other (covid 19) Paternal Grandfather ? No Known Problems Daughter ? other (hip dysplasia) Daughter ? No Known Problems Daughter ? other (Heart disease [Other]) Other ? Hyperlipidemia Other ? Hypertension Other ? other (Osteoarthritis [Other]) Other ? Stroke Other REVIEW OF SYMPTOMS: negative except as noted above PHYSICAL EXAMINATION: VITALS: Blood pressure 112/64, weight 195 lb (88.5 kg), last menstrual period 02/04/2023, currently . GENERAL: The patient is well nourished, well hydrated in no acute distress. , The patient is oriented to time, place, and person. NECK: Supple. No lynphadenopathy, normal thyroid, no thyromegaly. ABD: gravid, non tender IMPRESSION: @ 38.1 weeks- Breech PLAN: Repeat CS at 39 weeks Pt has been counseled on risks/benefits and alternatives of surgery including but not limited to anesthesia, bleeding, infection, injury to pelvic structures including bowel, bladder, ureters and vessels. Pt wishes to proceed with surgery at this time. Risk of transfusion reviewed Pre and post op instructions reviewed I have reviewed and updated past medical and surgical history, medications and allergies Renee Lucero MD
[2023-11-16] VITALS (21 sets, daily range): BP systolic 108–127; BP diastolic 55–104; PULSE 60–99; RESP 15–22; TEMP 35.9–36.7; O2SAT 98–100; BMI 28.5
[2023-11-16] MEDS: Lactated Ringers 1,000 ML 999 ML IV (06:18)
[2023-11-16 06:27] LABS: Absolute Lymphocyte Count 2.28 X10^3/uL (0.83-4.51); Absolute Neutrophil Count 5.9 X10^3/uL (2.0-7.7); Basophil# 0.03 X10^3/uL; Basophil% 0.3 % (0-1); Eosinophil# 0.09 X10^3/uL; Hematocrit 33.8 % (37-47); Hemoglobin 11.3 g/dL (12.0-15.0); Lymphocyte # 2.28 X10^3/ul (0.83-4.51); Lymphocyte % 25.2 % (19-41); Mean Corp Hgb Conc 33.4 g/dL (32-36); Mean Corpuscular Hgb 30.5 pg (27.0-32.0); Mean Corpuscular Volume 91.1 fL (81-99); Mean Platelet Vol. 10.2 fl (6.2-12.0); Monocyte# 0.74 X10^3/uL; Monocyte% 8.2 % (0-10); NRBC Flagged by Analyzer 0 % (0-5); Neutrophil # 5.88 X10^3/uL (2.7-7.7); Neutrophil % 64.9 % (47-70); Platelet Count 129 K/mm3 (150-450); RBC Distribution Width CV 13.2 % (11.6-14.6); RBC Distribution Width SD 42.6 fl (35.1-43.9); Red Blood Count 3.71 M/mm3 (4.2-5.4); White Blood Count 9.1 K/mm3 (4.4-11.0)
[2023-11-16] MEDS: Lactated Ringers 1,000 ML 500 ML IV (07:20)
[2023-11-16] MEDS: Acetaminophen 500 MG Tablet 1000 MG PO ×3 (07:35→19:53)
[2023-11-16] MEDS: Sodium Citrate/Citric Acid 30 ML UDC PO (07:36)
[2023-11-16] MEDS: Cefazolin 2 GM in 0.9% Normal Saline (100mL Bag) 100 ML IV (08:05)
--- NOTE | 2023-11-16 08:45 | EX.PCM.OBRPT ---
Details Operative Information Date of Procedure: 11/16/23 Pre-Operative Diagnosis: 39 weeks, Repeat c/s- Breech Post-Operative Diagnosis: same, live female Classification: Scheduled Procedure Type: low transverse manager of investigations #1: Howard Moore manager of investigations #2: ken esposito MS3 Type of Anesthesia: Spinal Antibiotic Given: Ancef 2 grams IV x1 Drain: [place] to straight drain Estimated Blood Loss: 600 Fluids Replaced: 800 Procedure Start Time: 08:14 Procedure Stop Time: 08:47 Time of Delivery: 08:18 Findings Description of Procedure: After informed consent was obtained the patient was taken the operating room she was given spinal anesthesia. She was then placed in the supine position. She was prepped and draped in the normal sterile fashion. Anesthesia was found to be adequate. At this time a Pfannenstiel skin incision was made with a knife was carried down to the underlying layer of the fascia. The fascial incision was then extended laterally using gentle traction. Attention was then turned to the superior aspect of the fascial edge was grasped with 2 straight [place] clamps tented up and the rectus muscle dissected off sharply using curved Weber scissor. Attention was then turned to the inferior aspect where again Peggy clamps were placed in the rectus muscles were tented up and the fascia was dissected off sharply using the curved Weber scissor. Rectus muscles were then grasped wtih allis clamps, scalped used to seperate in midline. peritonenum was then entered. Recutus taken down inferiorly with metzenbaum. Gentle opposing traction was placed. At this time the vesicouterine peritoneum was identified. Scalpel was used to make a uterine incision in a low transverse fashion. The uterus was then entered bluntly gentle opposing traction was placed to extend this incision. Membranes were ruptured clear. 's buttocks was brought to the incision and delivered followed by the legs and arms and head delivered without complication. delayed cord clamping was performed. Cord was clamped and cut was handed to the waiting nursery team. The Placenta was removed from the uterus. The uterus was then removed from the abdominal cavity. The uterus was cleared of all clots and debris using a lap. At this time the uterine incision was reapproximated using #1 Vicryl in a running locked fashion. Hemostasis was appreciated. Posterior cul-de-sac was then cleared of all clots and debris. Uterus was placed back in the abdominal cavity. Gutters were cleared of all clots and debris. Uterine incision was reevaluated and noted to be of excellent hemostasis. At this time the peritoneum and muscle were grasped with Kellys reapproximated using #2 Vicryl suture in a running fashion. Fascia was then reapproximated using #1 Vicryl in a running fashion. Subcu layer was irrigated and then reapproximated with #2 0 plain gut suture in an interrupted fashion. Subcu layer was closed using 4-0 Monocryl in a subcu fashion. Dry sterile dressing was applied. Instrument lap needle count correct ?2. Anticipated normal postoperative course. Presentation: Positive for Luis Breech Amniotic Membrane Rupture Type: Artificial Amniotic Fluid Description: Clear Placental Delivery Description: Expressed Placenta Disposition: [facility] Cord Vessel Description: 3 Vessels Cord Entanglement: None A Gender: Female (1 minute): 9 (5 minute): 9 Delayed Cord Clamping: Yes Complications Risks of Surgery Discussed w/Patient: Bleeding, Anesthesia Risks, Infection and Injury to surrounding structure(s) including bowel and bladder Complications: none
[2023-11-16] MEDS: Oxytocin 15 Units/NS 250ml 15 UNITS/250 ML IV.SOLN 83 UNITS IV (08:55)
--- NOTE | 2023-11-16 08:59 | PRE.ANES_ITS ---
Assessment & Plan Anesthesia* Anesthesia Assessment Anesthesia Assessment: Discussed sedation and/or anesthesia options, risks, benefits, and alternatives with patient/parents/legal guardian. Questions invited. The patient/parents/legal guardian/POA seems to understand and agrees to proceed with anesthesia plan. Reviewed the physical assessment, medical history, allergy history and patient home medications list prior to surgery/procedure/anesthetic and documented any changes. Performed airway and anesthesia risk assessments. Pre-Assessment* Anesthesia History Anesthesia History - marketing outreach coordinator: Anesthesia History - marketing outreach coordinator Hx Hospitalization Any Problems With Anesthesia Cholinesterase deficiency You/Your Family Experience fever (hyperthermia) with Relationship Recent Exposure to Contagious Disease Does patient have nerve stimulator Patient instructed to have device shut off --Does patient have Pacemaker or ICD? When Was Last Pacemaker Check Airway/Respiratory Assessment Respiratory Assessment - marketing outreach coordinator: Respiratory Tract Infection Hx - marketing outreach coordinator Hx Respiratory Tract Infection STOP Sleep Apnea STOP Sleep Apnea - marketing outreach coordinator: STOP Sleep Apnea - marketing outreach coordinator Hx Hypertension No 02/09/20 02:36 Hx Sleep Apnea No 02/08/20 23:38 CPAP BIPAP Do you snore loudly (louder than talking or can be heard Do you often feel tired/ fatigued/ sleepy during daytime? Has anyone observed you stop breathing during sleep? STOP Results Tobacco Use History Tobacco Use History - marketing outreach coordinator: Tobacco Use Histor - marketing outreach coordinator Tobacco Use Smoking Status Never smoker 11/16/23 06:34 Hx Tobacco Use No 11/16/23 06:34 Years Smoking Packs Smoked per Day Smoking Cessation Date was within the last 15 years Hx Smoking Cessation Date Hx Smoking Cessation No 02/09/20 02:36 Counseling /Reproduction History /Reproductive History - marketing outreach coordinator: /Reproductive Hx- marketing outreach coordinator Hx Now Gestational Age (in weeks): 39 11/16/23 06:34 EDC: 11/20/23 11/16/23 06:34 Hx 5 11/16/23 06:34 Hx Para 3 11/16/23 06:34 Hx Section SAB 0 11/16/23 06:34 Hematologic Medial History Hematologic Hx - marketing outreach coordinator: Hematolgic Medical Hx - clinical documentation spec Hx of Blood Transfusion Hx of Transfusion in last 3 Months Date of Last Transfusion (if within last 3 months) Ever experience any problems with transfusion(s)? Specify any problems Hx of Preganancy in last 3 Months Nurse Filling Out Transfusion & Questions: Date: Time: Patient unable to answer at this time (ie. confused, unrespo PONV PONV - marketing outreach coordinator: PONV - marketing outreach coordinator Female HX of Motion Sickness HX of N/V After Surgery Non-Smoker Duration of Surgery greater than 60 minutes Number of Risk Factors PONV Score ASA Classification ASA Classification: 2 Anesthesia focused assessment* Height & Weight: Anesthesia: Height & Weight Height 1.78 m 11/16/23 06:06 Weight: 90.038 kg 11/16/23 06:06 Body Mass Index (BMI) 28.5 11/16/23 06:06 Temperature: 97.4 F Pulse Rate: 95 Blood Pressure: 121/77 Respiratory Rate: 16 Pulse Ox: 98 Active Medications: Current Medications Generic Name Dose Route Start Last Admin Trade Name Freq PRN Reason Stop Dose Admin Acetaminophen 1,000 mg 11/16/23 12:00 Acetaminophen 500 Mg Tablet PO Q6 KIAN Bisacodyl 10 mg 11/16/23 08:44 Bisacodyl 10 Mg Suppository RC DAILY PRN PRN Constipation Hydrocortisone 1 applic 11/16/23 08:44 Hydrocortisone 2.5% Crm TOPICAL TID PRN PRN Discomfort Protocol Lactated Ringer's 1,000 mls @ 150 mls/hr 11/16/23 06:00 11/16/23 07:20 IV 500 mls/hr .Q6H40M KIAN Administration Oxytocin/Sodium Chloride 15 units in 250 mls @ 83 mls/hr 11/16/23 08:45 IV 11/16/23 11:45 .Q3H1M KIAN Lactated Ringer's 1,000 mls @ 100 mls/hr 11/16/23 08:45 IV .Q10H KIAN Ibuprofen 600 mg 11/17/23 14:45 Ibuprofen 600 Mg Tablet PO Q6H KIAN Ketorolac Tromethamine 30 mg 11/16/23 08:45 Ketorolac 30 Mg/Ml Syringe IV 11/17/23 02:46 Q6H KIAN Methylergonovine Maleate 0.2 mg 11/16/23 08:44 Methylergonovine 0.2 Mg/Ml Ampul IM X1 PRN Uterine Atony Ondansetron HCl 4 mg 11/16/23 08:44 Ondansetron 4 Mg/2 Ml Vial IV Q4H PRN PRN NAUSEA Oxycodone HCl 5 - 10 mg 11/17/23 08:44 Oxycodone 5 Mg Tablet PO Q4H PRN PRN Pain Score 4-10 Prochlorperazine Edisylate 10 mg 11/16/23 08:44 Prochlorperazine 10 Mg/2 Ml Vial IV Q6H PRN PRN NAUSEA Senna/Docusate Sodium 1 - 2 tablet 11/16/23 10:00 Senna/Docusate Sodium 1 Tablet PO DAILY KIAN Simethicone 80 mg 11/16/23 08:44 Simethicone 80 Mg Chewable Tablet PO PCHS PRN Indigestion/stomach pain Sodium Chloride 5 - 15 ml 11/16/23 05:57 0.9% Saline Lock 10 Ml Syringe IV PRN PRN SALINE FLUSH Sodium Chloride 5 - 15 ml 11/16/23 08:44 0.9% Saline Lock 10 Ml Syringe IV UD PRN SALINE FLUSH Focused labs Anesthesia Preop lab: CBC WBC 12.9 K/mm3 (4.4-11.0) H 11/17/23 05:45 RBC 3.47 M/mm3 (4.2-5.4) L 11/17/23 05:45 Hgb 10.6 g/dL (12.0-15.0) L 11/17/23 05:45 Hct 32.1 % (37-47) L 11/17/23 05:45 Plt Count 140 K/mm3 (150-450) L 11/17/23 05:45 CHEMISTRY Potassium 3.4 mmol/L (3.5-5.1) L 02/08/20 20:15 Sodium 142 mmol/L (136-145) 02/08/20 20:15 BUN 12 mg/dL (7-18) 02/08/20 20:15 Creatinine 0.88 mg/dL (0.55-1.02) 02/08/20 20:15 Glucose 111 mg/dL (74-106) H 02/08/20 20:15 TSH 2.67 uIU/mL (0.358-3.74) 02/08/20 20:15 COAG Review of Systems (Anesthesia) ROS Narrative System reviewed and no additional complaints, except as documented. [facility] Medical History (Updated 11/25/23 @ 00:01 by Background Daemon) History of pneumothorax Hx of herpes genitalis Autoimmune disease Vaginal after TMJ (temporomandibular joint syndrome) Home Medications ?Medication ?Instructions ?Recorded ?Last Taken ?Type juikhznq-frp-Fb-FA 1 mg 1 tab PO DAILY 09/23/22 Unknown History tablet docusate sodium 100 mg capsule 100 mg PO BID PRN constipation #30 11/17/23 Unknown Rx (Colace) caps ibuprofen 600 mg tablet 600 mg PO Q6H PRN pain #30 tabs 11/17/23 Unknown Rx Allergy/AdvReac Type Severity Reaction Status Date / Time No Known Allergies Allergy Verified 11/16/23 06:08 Surgical History (Updated 11/25/23 @ 00:01 by Background Daemon) Delivery by section History of surgery History of gynecologic surgery Previous section Social History Smoking Status: Never smoker
[2023-11-16] MEDS: Ketorolac 30 MG/ML Syringe IV ×3 (09:47→21:41)
[2023-11-16] MEDS: Senna/Docusate Sodium 1 Tablet PO (11:06)
[2023-11-16] MEDS: Lactated Ringers 1,000 ML 100 ML IV (12:35)
[2023-11-16 17:19] LABS: Syphilis Antibodies Non-reactive
[2023-11-16] MEDS: 0.9% Saline Lock 10 ML Syringe IV (21:41)
[2023-11-16] MEDS: SimETHICONE 80 MG Chewable Tablet PO (21:46)
[2023-11-17] MEDS: Acetaminophen 500 MG Tablet 1000 MG PO ×3 (01:36→13:35)
[2023-11-17] MEDS: Ketorolac 30 MG/ML Syringe IV (03:43)
[2023-11-17 03:59] VITALS: BP 128/82; PULSE 68; RESP 14; TEMP 36.2; O2SAT 99
[2023-11-17 05:56] LABS: Hematocrit 32.1 % (37-47); Hemoglobin 10.6 g/dL (12.0-15.0); Mean Corpuscular Hgb 30.5 pg (27.0-32.0); Mean Corpuscular Volume 92.5 fL (81-99); Mean Platelet Vol. 10.2 fl (6.2-12.0); Platelet Count 140 K/mm3 (150-450); RBC Distribution Width CV 13.2 % (11.6-14.6); RBC Distribution Width SD 44.3 fl (35.1-43.9); Red Blood Count 3.47 M/mm3 (4.2-5.4); White Blood Count 12.9 K/mm3 (4.4-11.0)
[2023-11-17 08:03] VITALS: BP 117/78; PULSE 83; RESP 17; TEMP 36.4; O2SAT 98
--- NOTE | 2023-11-17 08:21 | PCM.PN.OB ---
Subjective Subjective The patient is doing well this morning. She is ambulating and voiding without difficulty. Pain is controlled. She is tolerating a regular diet without nausea or vomiting. She denies chest pain, shortness of breath, leg pain, lightheadedness, dizziness. Lochia is normal. She states she was planning on staying 2 days, but is feeling well this morning and may want to be discharged today. Objective Data Objective Data Vital Signs: Vital Signs Temp Pulse Resp BP Pulse Ox O2 Del Method 97.6 F L 83 17 117/78 98 Room Air 11/17/23 08:03 11/17/23 08:03 11/17/23 08:03 11/17/23 08:03 11/17/23 08:03 11/17/23 08:03 Oxygen Delivery Method Room Air Weight: 198 lb 8 oz Body Mass Index (BMI) 28.5 Intake & Output: Intake and Output for Last 24 Hours 11/15/23 11/16/23 11/17/23 23:59 23:59 23:59 Intake Total 3658 / 3658 Output Total 4150 / 4150 Balance -492 / -492 Lab / Micro Data 11/17/23 05:45 Labs: Laboratory Results - last 24 hr 11/16/23 06:18: Syphilis Total Ab Non-reactive 11/17/23 05:45: WBC 12.9 H, RBC 3.47 L, Hgb 10.6 L, Hct 32.1 L, MCV 92.5, MCH 30.5, MCHC 33.0, RDW Std Deviation 44.3 H, RDW Coeff of Karen 13.2, Plt Count 140 L, MPV 10.2 Physical Exam Const alert and no apparent distress General Appearance: comfortable HEENT normocephalic Resp normal respiratory effort GI soft to palpation and non-distended GI Narrative: ATTP, dressing intact with small amount of shadowing that is stable, non acute Extremity normal to inspection and no calf tenderness Assessment & Plan (1) Delivery by section: PLAN: The patient is postoperative day 1 from a repeat section. She is doing well and meeting milestones for discharge. Discharge instructions reviewed. She states she may desire to go home later today or tomorrow, and she is undecided at this time. Routine postoperative care.
--- NOTE | 2023-11-17 08:26 | PCM.DC ---
Discharge Instructions Diet Discharge Diet: No restrictions Activity Discharge Activity: May Drive (once you feel you are strong enough to slam on a brake or turn a steering wheel sharply) and May Shower May resume sexual activity in: 6 weeks Ice area for (Minutes): 15 Weight Bearing Status: Weight bearing as tolerated Lifting Restrictions: nothing heavier than baby Dressing / Incision Call your doctor if your incision/area has: Continuous Slow Oozing, Sudden Increased Bleeding, Increased Pain/ Swelling, Increased Redness, Foul Smelling Discharge and Swelling at the incision site Call your doctor if you observe: Fever of 101 or Higher, Coldness, Increased Pain, Numbness or Tingling, Change in Color, Inability to urinate, Inability to have a bowel movement, Using more than 1 pad per hour, Shortness of breath, Dizziness, Fainting spells, Swelling in the ankles, Chest pain, Prolonged hiccupping, Increased palpitations (irregular heartbeat), Calf discomfort and Uncontrolled pain Suture Line Care: Avoid Pulling/Pushing and Avoid Pinching/Bending Remove Dressing in: 3 days Cleanse incision/area with: Soap & Water Follow Up Care Please Follow Up With: Renee Leach MD When: 1 week for incision check 6 week for visit Test Results: Test results from this visit will be discussed in further detail at your follow-up appointment, if applicable. Discharge Plan Admission Admit Date/Time: 11/16/23 05:57 Primary Reason for Your Visit: Delivery Attending Provider: Renee Leach Primary Care Provider: Hannah Chinchilla NP Instructions Patient Instructions: After a Discharge Orders/Prescriptions Prescriptions: New ibuprofen 600 mg tablet 600 mg PO Q6H PRN (Reason: pain) Qty: 30 0RF docusate sodium [Colace] 100 mg capsule 100 mg PO BID PRN (Reason: constipation) Qty: 30 0RF Continued [id number] 1 mg Tablet 1 tab PO DAILY Referrals / Follow Up: Hannah Chinchilla NP, [facility] [Primary Care Provider] - Disposition Disposition (needs filled in before D/C Order can be placed): Home, Self Care
[2023-11-17] MEDS: Ibuprofen 600 MG Tablet PO (12:28)
[2023-11-17] MEDS: Senna/Docusate Sodium 1 Tablet PO (12:28)
== END 2023-11-17 14:40 | disposition home or self-care (01) | DRG 788 ==
PROVIDERS: Admitting Provider Obstetrics & Gynecology; PCP Nurse Practitioner Primary Care; Referring Provider Obstetrics & Gynecology; Visit Provider Obstetrics & Gynecology
PROC: 10D00Z1 Extraction of Products of Conception, Low, Open Approach (ICD-10-PCS; CPT 59514; principal; 2023-11-16 07:45)
DX: O32.1XX0 Maternal care for breech presentation, not applicable or unspecified (principal); O34.219 Maternal care for unspecified type scar from previous cesarean delivery; Z37.0 Single live birth; Z3A.39 39 weeks gestation of pregnancy
CPT/HCPCS: 59025; 59050; 85025; 85027; 86780; 86850; 86900; 86901; 99221; J7120; A4216; G0378; J2405